=== PATIENT | female | born 1980 | race Hispanic/Latino ===

== ENCOUNTER 2022-10-16 20:33 | Emergency (ER) | payer BC ==
[~2022-10-16] VITALS: Ht 157.5 cm; Wt 99.8 kg
[2022-10-16 21:27] LABS: HEMATOCRIT 37.9 % (36-48); MEAN CORPUSCULAR HEMOGLOBIN 28.3 pg (27.0-33.0); MEAN CORPUSCULAR VOLUME 85.9 fL (79-99); PLATELET COUNT (AUTO) 334 K/uL (130-400); RED BLOOD CELL COUNT(AUTO) 4.41 MIL/uL (4.00-5.50); RED CELL DISTRIBUTION WIDTH 13.6 % (11.0-15.5); WHITE BLOOD COUNT (AUTO) 13.5 K/uL (4.8-10.8)
[2022-10-16] MEDS ORDERED: ONDANSETRON 4MG INJ IVP ONE (21:30)
[2022-10-16] MEDS ORDERED: MORPHINE 2 MG SYG IVP ONE (21:30)
[2022-10-16] MEDS ORDERED: DIPHENOXYLATE HCL/ATROPINE 2.5/0.025 MG TAB PO ONE (21:30)
[2022-10-16 21:32] LABS: BASOPHILS % (AUTO) 0.3 % (0.0-5.0); EOSINOPHILS % (AUTO) 0.7 % (0.0-8.0); LYMPHOCYTES % (AUTO) 11.1 % (21.0-51.0); MONOCYTES % (AUTO) 2.7 % (3.0-13.0); NEUTROPHILS % (AUTO) 84.6 % (40.0-77.0)
[2022-10-16 21:39] LABS: CARBON DIOXIDE 28 mmol/L (21-32); CHLORIDE 104 mmol/L (101-111); CREATININE 0.8 mg/dL (0.5-1.5); GLOMERULAR FILTR. RATE CALC 95 mL/min (>90); GLUCOSE,RANDOM 109 mg/dL (70-105); POTASSIUM 3.9 mmol/L (3.5-5.1); SODIUM SERUM 139 mmol/L (136-145); UREA NITROGEN, BLOOD 10 mg/dL (7-18)
[2022-10-16 21:43] LABS: ALANINE AMINOTRANSFERASE 67 U/L (12-78); ALBUMIN 3.2 g/dL (3.5-5.0); ASPARTATE AMINOTRANSFERASE 47 U/L (10-37); TOTAL PROTEIN, SERUM 7.6 g/dL (6.0-8.3)
[2022-10-16 21:44] LABS: LIPASE < 50 U/L (114-286)
[2022-10-16] MEDS ORDERED: IOHEXOL-350 75 ML VIAL IV ONE (22:38)
[2022-10-16 23:31] VITALS: BP 112/60
[2022-10-17] MEDS ORDERED: DIPH1TAB PO (00:15)
[2022-10-17] MEDS ORDERED: ONDA4TAB10 PO (00:15)
[2022-10-17] MEDS ORDERED: DICY10 PO (00:17)
== END 2022-10-17 00:37 | disposition home or self-care (01) ==
LOC: EDH 20:33
DX: K52.9 Noninfective gastroenteritis and colitis, unspecified (principal); Z90.49 Acquired absence of other specified parts of digestive tract; Z98.51 Tubal ligation status
CPT/HCPCS: 99284; 74177; 96374; 96375; 80053; 83690; 85025; 36415; J2270; Q9967